=== PATIENT | female | born 1970 | race Asian ===

== ENCOUNTER 2017-06-29 09:46 | Emergency (ER) | payer OTHER ==
[2017-06-29] MEDS: KETOROLAC 60 MG INJ IM (11:24)
== END 2017-06-29 13:00 | disposition home or self-care (01) ==
LOC: FTE 09:46
DX: S40.012A Contusion of left shoulder, initial encounter (principal); S29.001A Unspecified injury of muscle and tendon of front wall of thorax, initial encounter; S79.922A Unspecified injury of left thigh, initial encounter; R07.9 Chest pain, unspecified; V49.40XA Driver injured in collision with unspecified motor vehicles in traffic accident, initial encounter
CPT/HCPCS: 71046; 73030; 73550; 81025; 96372; 99284-25